=== PATIENT | female | born 1960 | race Asian ===

== ENCOUNTER 2017-09-17 19:28 | Emergency (ER) | payer SELFPAY, OTHER ==
[2017-09-17] MEDS: ACETAMINOPHEN 500 MG TAB PO (21:47)
[2017-09-17] MEDS: IBUPROFEN 800 MG TAB PO (21:47)
== END 2017-09-17 23:30 | disposition home or self-care (01) ==
LOC: FTE 19:28
DX: J10.1 Influenza due to other identified influenza virus with other respiratory manifestations (principal); I10 Essential (primary) hypertension
CPT/HCPCS: 71045; 87400; 99284-25

== ENCOUNTER 2019-02-18 10:04 | Emergency (ER) | payer OTHER ==
[2019-02-18] MEDS: KETOROLAC 60 MG INJ IM (10:54)
[2019-02-18 10:56] LABS: URINE BLOOD (Dip) POC Trace-intact (NEGATIVE); URINE GLUCOSE (Dip) POC Negative (NEGATIVE); URINE KETONES (Dip) POC Negative (NEGATIVE); URINE LEUKOCYTE EST (Dip) POC 1+ (NEGATIVE); URINE NITRITE (Dip) POC Negative (NEGATIVE); URINE TOTAL PROTEIN POC Trace (NEGATIVE)
== END 2019-02-18 11:44 | disposition home or self-care (01) ==
LOC: FTE 10:04
DX: N39.0 Urinary tract infection, site not specified (principal); I10 Essential (primary) hypertension
CPT/HCPCS: 81003; 96372; 99284-25